=== PATIENT | female | born 1985 | race Caucasian/White ===

== ENCOUNTER 2017-04-08 09:30 | Emergency (ER) | payer BC, OTHER ==
[~2017-04-08] VITALS: Ht 160 cm; Wt 55.0 kg
[2017-04-08 10:20] VITALS: BP 113/77; PULSE 79; RESP 18; TEMP 98.6; O2SAT 97
--- NOTE | 2017-04-08 11:00 | PD ---
HPI Chief Complaint: Psychiatric Symptoms Time Seen by Provider: 10:17 Travel History International Travel<30 days: No Contact w/Intl Traveler<30days: No Traveled to known affect area: No History of Present Illness HPI NIX ACTED BY RYAN REYES DUE TO SUICIDAL IDEATIONS, PATIENT ADMITS TO DRINKING ETOH....AND OTHERWISE WAS NOT WANTING TO INTERACT MUCH SO NOT MUCH HISTORY COULD BE OBTAINED PFS Past Medical History Anxiety: Yes Depression: Yes Insomnia: Yes ?: Unknown LMP: 04/08/2017 Past Surgical History Surgical History: No Previous Surgery Social History Alcohol Use: Yes (daily ) Tobacco Use: No Substance Use: Yes Allergies-Medications (Allergen,Severity, Reaction): Coded Allergies: penicillin G (Unverified Allergy, Severe, 04/02/17) Reported Meds & Prescriptions Reported Meds & Active Scripts Active Reported Prozac (Fluoxetine HCl) 10 Mg Cap 10 Mg PO DAILY Gabapentin 100 Mg Cap 100 Mg PO BID Review of Systems Except as stated in HPI: all other systems reviewed are Neg Psychiatric: Positive: Depression, Suicidal Ideations Physical Exam Narrative GENERAL: SKIN: Warm and dry. HEAD: Atraumatic. Normocephalic. EYES: Pupils equal and round. No scleral icterus. No injection or drainage. ENT: No nasal bleeding or discharge. Mucous membranes pink and moist. NECK: Trachea midline. No JVD. CARDIOVASCULAR: Regular rate and rhythm. RESPIRATORY: No accessory muscle use. Clear to auscultation. Breath sounds equal bilaterally. GASTROINTESTINAL: Abdomen soft, non-tender, nondistended. Hepatic and splenic margins not palpable. MUSCULOSKELETAL: Extremities without clubbing, cyanosis, or edema. No obvious deformities. NEUROLOGICAL: Awake and alert. No obvious cranial nerve deficits. Motor grossly within normal limits. Five out of 5 muscle strength in the arms and legs. Normal speech. PSYCHIATRIC: DEPRESSED mood and SAD affect; insight and judgment normal. Data Data Last Documented VS Vital Signs Date Time Temp Pulse Resp B/P (MAP) Pulse Ox O2 Delivery O2 Flow Rate FiO2 04/08/17 10:25 16 04/08/17 10:20 98.6 79 113/77 (89) 97 Orders Orders Complete Blood Count With Diff (04/08/17 10:20) Comprehensive Metabolic Panel (04/08/17 10:20) Urinalysis - C+S If Indicated (04/08/17 10:20) Ed Urine Pregnancytest Poc (04/08/17 10:20) Psych Screen (04/08/17 10:20) Drug Screen, Random Urine (04/08/17 10:20) Alcohol (Ethanol) (04/08/17 10:20) Salicylates (Aspirin) (04/08/17 10:20) Tylenol (Acetaminophen) (04/08/17 10:20) Labs Laboratory Tests Test 04/08/17 10:40 White Blood Count 6.4 TH/MM3 Red Blood Count 4.03 MIL/MM3 Hemoglobin 12.4 GM/DL Hematocrit 38.2 % Mean Corpuscular Volume 94.8 FL Mean Corpuscular Hemoglobin 30.7 PG Mean Corpuscular Hemoglobin Concent 32.4 % Red Cell Distribution Width 13.5 % Platelet Count 235 TH/MM3 Mean Platelet Volume 6.3 FL Neutrophils (%) (Auto) 64.2 % Lymphocytes (%) (Auto) 31.0 % Monocytes (%) (Auto) 3.6 % Eosinophils (%) (Auto) 0.4 % Basophils (%) (Auto) 0.8 % Neutrophils # (Auto) 4.1 TH/MM3 Lymphocytes # (Auto) 2.0 TH/MM3 Monocytes # (Auto) 0.2 TH/MM3 Eosinophils # (Auto) 0.0 TH/MM3 Basophils # (Auto) 0.0 TH/MM3 CBC Comment DIFF FINAL Differential Comment Blood Urea Nitrogen 6 MG/DL Creatinine 0.49 MG/DL Random Glucose 81 MG/DL Total Protein 6.9 GM/DL Albumin 3.5 GM/DL Calcium Level 8.2 MG/DL Alkaline Phosphatase 41 U/L Aspartate Amino Transf (AST/SGOT) 25 U/L Alanine Aminotransferase (ALT/SGPT) 23 U/L Total Bilirubin 0.3 MG/DL Sodium Level 146 MEQ/L Potassium Level 3.8 MEQ/L Chloride Level 108 MEQ/L Carbon Dioxide Level 27.0 MEQ/L Anion Gap 11 MEQ/L Estimat Glomerular Filtration Rate 145 ML/MIN Salicylates Level LESS THAN 1.7 MG/DL Acetaminophen Level LESS THAN 2.0 MCG/ML Ethyl Alcohol Level 334 MG/DL MDM Medical Decision Making Medical Screen Exam Complete: Yes Emergency Medical Condition: Yes Medical Record Reviewed: Yes Differential Diagnosis ANEMIA V PREG RELATED V ELECTROLYTE ABNL Narrative Course PATIENT NOT ANEMIC, NEG , NL ELECTROLYTE, ETOH PRESENT, PATIENT IS MEDICALLY CLEARED Diagnosis Primary Impression: Medical clearance for psychiatric admission Admitting Information Admitting Physician Requests: Observation Lasha Cooper MD Apr 08, 2017 11:00
[2017-04-08 11:05] LABS: AUTOMATED NEUTROPHIL # 4.1 TH/MM3 (1.8-7.7); BASOPHIL % 0.8 % (0.0-2.0); EOSINOPHIL % 0.4 % (0.0-4.0); HEMATOCRIT 38.2 % (35.0-46.0); HEMO FLAGS DIFF FINAL; MEAN CELL VOLUME 94.8 FL (80.0-100.0); MEAN CORPUSCULAR HEMOGLOBIN 30.7 PG (27.0-34.0); MEAN CORPUSCULAR HGB CONC 32.4 % (32.0-36.0); MONO % 3.6 % (0.0-8.0); NEUT % 64.2 % (16.0-70.0); PLATELET COUNT 235 TH/MM3 (150-450); RED BLOOD COUNT 4.03 MIL/MM3 (4.00-5.30); RED CELL DISTRIBUTION WIDTH 13.5 % (11.6-17.2); WHITE BLOOD COUNT 6.4 TH/MM3 (4.0-11.0)
[2017-04-08 11:08] LABS: ALT (GPT) 23 U/L (10-53); ANION GAP 11 MEQ/L (5-15); AST (GOT) 25 U/L (15-37); BLOOD UREA NITROGEN 6 MG/DL (7-18); CHLORIDE 108 MEQ/L (98-107); GLOMERULAR FILTRATION RATE 145 ML/MIN (>89); POTASSIUM 3.8 MEQ/L (3.5-5.1); SODIUM (NA) 146 MEQ/L (136-145)
[2017-04-08 11:17] LABS: ACETAMINOPHEN LESS THAN 2.0 MCG/ML (10.0-30.0); ALCOHOL 334 MG/DL (0-5); ALKALINE PHOSPHATASE 41 U/L (45-117); TOTAL BILIRUBIN ADULT 0.3 MG/DL (0.2-1.0)
[2017-04-08] MEDS ORDERED: GABA100C4 PO (11:28)
[2017-04-08] MEDS ORDERED: FLUO-1 PO (11:28)
[2017-04-08 12:44] LABS: BACTERIA, URINE RARE /hpf; BLOOD, URINE TRACE (NEG); COMMENT (UR) CULTURE INDICATED; CULTURE IF INDICATED CULTURE INDICATED; GLUCOSE,URINE NEG (NEG); KETONE, URINE NEG (NEG); MUCUS URINE FEW /lpf (OCC); NITRITE,URINE POS (NEG); PH, URINE 6.5 (5.0-8.5); SQUAMOUS EPITHELIAL CELL URINE 1 /hpf (0-5); URINE COLOR YELLOW (YELLW/STRAW)
[2017-04-08] MEDS ORDERED: NICOTINE 7 MG/24 HR PATCH T-DERMAL ONE (14:45)
[2017-04-08 16:18] VITALS: BP 120/75; PULSE 71; RESP 18; O2SAT 98
[2017-04-08] MEDS ORDERED: SERT-129 PO (18:57)
[2017-04-08] MEDS ORDERED: FLUMAZENIL 0.5 MG/5 ML VIAL IV PUSH PRN (21:15)
[2017-04-08] MEDS ORDERED: LORazepam 1 MG TAB PO PRN (21:15)
[2017-04-08] MEDS ORDERED: LORazepam 2 MG TAB PO PRN (21:15)
[2017-04-08] MEDS ORDERED: LORazepam 2 MG/ML VIAL IV PUSH PRN ×4 (21:15)
[2017-04-08 22:05] VITALS: BP 112/59; PULSE 87; RESP 18
[2017-04-09 02:10] VITALS: BP 103/55; PULSE 82; RESP 17; O2SAT 98
[2017-04-09 06:00] VITALS: BP 98/59; PULSE 87; RESP 17; O2SAT 98
--- NOTE | 2017-04-09 08:45 | PD ---
History of Present Illness Chief Complaint: Psychiatric Symptoms Time Seen by Provider: 08:20 Travel History International Travel<30 Days: No Contact w/Intl Traveler<30days: No Known affected area: No Legal Status Legal Status: Miranda Act Miranda Act Signed By: Sandy Bland History of Present Illness: History of Present Illness HPI 31 year old female with history of alcohol dependence who presents to [facility] under a Miranda act initiated by [employer] security officer. The report alleges that the patient's father, Alberto Gonsalez, contacted the police to inform them that he had received a call from the patient telling him that she cut her wrist.The patient did present with superficial partially healed cuts to her wrist. She denies that she had told her father that she had cut herself. The patient was monitored in safe environment and she did not demonstrate any behavioral concerns and no suicidality. Her BAL on arrival to [facility] was 334. EMR reviewed with no previous contact with [facility] psychiatry dept. The patient is seen . She is alert and oriented. She is clinically sober with no signs of withdrawal. Speech is clear and logical, normal rate and tone. She states " I just got out of rehab two weeks ago. I went on a laboy. I was just being stupid. It was a cry for help. I don't want to kill myself'. Patient with no psychosis and no devan. No suicidal or homicidal ideation, intent or plan. Mood is euthymic with no objective signs of depression or anxiety. She is interested on starting Vivitrol and is requesting to be discharged. [facility] Past Medical History Anxiety: Yes Depression: Yes Insomnia: Yes ?: Unknown LMP: 04/08/2017 Past Surgical History Surgical History: No Previous Surgery Psychiatric History Psychiatric History Hx Psychiatric Treatment: none History of Inpatient Treatment: No Guns or firearms in home: No Social History Single female. Lives with her father, his girlfriend and her 12 year old son. She is unemployed and has worked for the [employer] in the past. Hx Alcohol Use: Yes (daily ) Hx Tobacco Use: No Hx Substance Use: Yes Substance Use Type: Alcohol, Marijuana Hx of Substance Use Treatment: Yes (Completed an [facility] program 2 weeks ago.) Family Psychiatric History Negative Allergies-Medications (Allergen,Severity, Reaction): Coded Allergies: penicillin G (Unverified Allergy, Severe, 04/02/17) Reported Meds & Prescriptions Reported Meds & Active Scripts Active Reported Sertraline (Sertraline HCl) 100 Mg Tab 100 Mg PO DAILY Prozac (Fluoxetine HCl) 10 Mg Cap 10 Mg PO DAILY Gabapentin 100 Mg Cap 100 Mg PO BID Review of Systems Except as stated in HPI: all other systems reviewed are Neg Exam Alert: Yes [place]: Person (ox4) Mood: Calm Affect: Appropriate Speech: Clear, Logical Eye Contact: Normal Memory Intact: Comment (No impairmetn) Hallucinations: Other (negative) Delusions: No Suicidal: Ideation (Denies any) Homicidal: Ideation (Denies any) Insight/Judgement Fair,not impaired. MDM Medical Decision Making Medical Record Reviewed: Yes Assessment/Plan 31 year old female with history of alcohol dependence who presents to [facility] under a Miranda act initiated by [employer] security officer. The report alleges that the patient's father, Alberto Gonsalez, contacted the police to inform them that he had received a call from the patient telling him that she cut her wrist. She did not make any attempt at harming herself. After she was allowed to sober up clinically in safe environment the patient requests discharge. She does not meet criteria for BA. I have provided psychotherapy . Strongly recommend AA. Follow up with her PCP for Vivitrol. Lift BA Discharge home Orders Orders Complete Blood Count With Diff (04/08/17 10:20) Comprehensive Metabolic Panel (04/08/17 10:20) Urinalysis - C+S If Indicated (04/08/17 10:20) Ed Urine Pregnancytest Poc (04/08/17 10:20) Psych Screen (04/08/17 10:20) Drug Screen, Random Urine (04/08/17 10:20) Alcohol (Ethanol) (04/08/17 10:20) Salicylates (Aspirin) (04/08/17 10:20) Tylenol (Acetaminophen) (04/08/17 10:20) Urine Culture (04/08/17 12:15) Nicotine 7 Mg Patch.24 Hr (Habitrol 7 M (04/08/17 14:45) Diet Regular Basic (04/08/17 Dinner) Lorazepam (Ativan) (04/08/17 21:15) Lorazepam Inj (Ativan Inj) (04/08/17 21:15) Lorazepam (Ativan) (04/08/17 21:15) Lorazepam Inj (Ativan Inj) (04/08/17 21:15) Lorazepam Inj (Ativan Inj) (04/08/17 21:15) Lorazepam Inj (Ativan Inj) (04/08/17 21:15) Flumazenil Inj (Romazicon Inj) (04/08/17 21:15) Diet Regular Basic (04/09/17 Breakfast) Results Vital Signs Date Time Temp Pulse Resp B/P (MAP) Pulse Ox O2 Delivery O2 Flow Rate FiO2 04/09/17 06:00 87 17 98/59 (72) 98 Room Air 04/09/17 02:10 82 17 103/55 (71) 98 Room Air 04/08/17 22:05 87 18 112/59 (76) 04/08/17 16:18 71 18 120/75 (90) 98 Room Air 04/08/17 10:25 16 04/08/17 10:20 98.6 79 18 113/77 (89) 97 Laboratory Tests Test 04/08/17 10:40 04/08/17 12:15 White Blood Count 6.4 Red Blood Count 4.03 Hemoglobin 12.4 Hematocrit 38.2 Mean Corpuscular Volume 94.8 Mean Corpuscular Hemoglobin 30.7 Mean Corpuscular Hemoglobin Concent 32.4 Red Cell Distribution Width 13.5 Platelet Count 235 Mean Platelet Volume 6.3 Neutrophils (%) (Auto) 64.2 Lymphocytes (%) (Auto) 31.0 Monocytes (%) (Auto) 3.6 Eosinophils (%) (Auto) 0.4 Basophils (%) (Auto) 0.8 Neutrophils # (Auto) 4.1 Lymphocytes # (Auto) 2.0 Monocytes # (Auto) 0.2 Eosinophils # (Auto) 0.0 Basophils # (Auto) 0.0 CBC Comment DIFF FINAL Differential Comment Blood Urea Nitrogen 6 Creatinine 0.49 Random Glucose 81 Total Protein 6.9 Albumin 3.5 Calcium Level 8.2 Alkaline Phosphatase 41 Aspartate Amino Transf (AST/SGOT) 25 Alanine Aminotransferase (ALT/SGPT) 23 Total Bilirubin 0.3 Sodium Level 146 Potassium Level 3.8 Chloride Level 108 Carbon Dioxide Level 27.0 Anion Gap 11 Estimat Glomerular Filtration Rate 145 Salicylates Level LESS THAN 1.7 Acetaminophen Level LESS THAN 2.0 Ethyl Alcohol Level 334 Urine Color YELLOW Urine Turbidity HAZY Urine pH 6.5 Urine Specific [place] 1.013 Urine Protein TRACE Urine Glucose (UA) NEG Urine Ketones NEG Urine Occult Blood TRACE Urine Nitrite POS Urine Bilirubin NEG Urine Urobilinogen LESS THAN 2.0 Urine Leukocyte Esterase SMALL Urine RBC 1 Urine WBC 9 Urine Squamous Epithelial Cells 1 Urine Bacteria RARE Urine Mucus FEW Microscopic Urinalysis Comment CULTURE INDICATED Urine Opiates Screen NEG Urine Barbiturates Screen NEG Urine Amphetamines Screen NEG Urine Benzodiazepines Screen NEG Urine Cocaine Screen NEG Urine Cannabinoids Screen NEG Date/Time Source Procedure Growth Status 04/08/17 12:15 Urine Clean Catch Urine Culture Pending Worksheet Diagnosis Primary Impression: Alcohol dependence with acute alcoholic intoxication without complication Psychiatrically Cleared: Yes Referrals: [facility] (Out patient) call for appointment Departure Forms: Tests/Procedures Patient Instructions: General Instructions, Alcohol Use Disorder (ED) Med/ Other Pt Specific Info: No Change to Meds Disposition: 01 DISCHARGE HOME Condition: Stable Xiao GoldmanP Apr 09, 2017 08:45
== END 2017-04-09 11:53 | disposition home or self-care (01) ==
LOC: NEPD 09:30 → NEPJ 04-09 11:53
DX: F10.229 Alcohol dependence with intoxication, unspecified (principal); F32.9 Major depressive disorder, single episode, unspecified
CPT/HCPCS: 80053; 80307; 81001; 84703; 85025; 87086; 99283